=== PATIENT | female | born 1955 | race Caucasian/White ===

== ENCOUNTER 2017-10-07 13:01 | Emergency (ER) | payer OTHER ==
[~2017-10-07] VITALS: Ht 165.1 cm; Wt 61.2 kg
[2017-10-07 13:10] VITALS: BP 165/108
[2017-10-07] MEDS ORDERED: TRAMADOL HCL50 MG ORAL (13:22)
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
[2017-10-07 13:27] VITALS: BP 150/90
== END 2017-10-07 13:30 | disposition home or self-care (01) ==
LOC: EDBD 13:01 → EMR 13:29
DX: R51 Headache (principal); Y04.2XXA Assault by strike against or bumped into by another person, initial encounter; Y92.89 Other specified places as the place of occurrence of the external cause; Y99.0 Civilian activity done for income or pay; Z88.1 Allergy status to other antibiotic agents
CPT/HCPCS: 99283